=== PATIENT | male | born 1975 | race Caucasian/White ===

== ENCOUNTER 2020-04-14 23:22 | Emergency (ER) | payer OTHER, SELFPAY ==
[2020-04-14 23:27] VITALS: BP 126/71; PULSE 86; RESP 20; TEMP 36.1; O2SAT 96
--- NOTE | 2020-04-15 02:18 | ED.EYEPROB ---
HPI - Eye Problem General Chief complaint: Eye Problems Stated complaint: eye issues Time Seen by Provider: 04/15/20 00:20 Source: RN notes reviewed History of Present Illness HPI Narrative: Patient presents to emergency room from home for right eye pain. Patient states that this evening he was drilling a screw hole and to a 10 ceiling when a piece of the ceiling fell into his eye and became embedded in his right eye. He states that his try to get out the savage of metal with a a Q-tip was unsuccessful. He states he has had this happen several times over the past he denies any other trauma or injury denies any vision changes at this time denies wearing contacts or glasses Related Data Allergies Allergy/AdvReac Type Severity Reaction Status Date / Time No Known Allergies Allergy Mild Verified 04/14/20 23:30 Review of Systems Review of Systems: Narrative: Gen.: Denies fevers or chills Eye: See HPI Neuro: Denies numbness, tingling, weakness Skin: Denies rash Endo: Denies DM PMFSH Past Medical History Medical History (Updated 04/15/20 @ 02:21 by Manuel Wolfe DO) Patient denies significant medical history Social History Social History (Updated 04/15/20 @ 02:19 by Manuel Wolfe DO) Smoking status: Never smoker Exam Narrative: Exam Narrative: APPEARANCE: No acute distress, nontoxic, resting in bed Eyes: Bilateral upper and lower eyelids normal appearance PERRL, EOMI, right eye has no conjunctival erythema just to the right of the midline of the pupil is a small savage of metal seen no rust ring present, HEENT: Normocephalic, atraumatic, nares patent RESPIRATORY: No respiratory distress MUSCULOSKELETAl: Moves all extremities. NEURO: Awake and alert. Following commands, speech normal, no focal deficits SKIN:: Warm, dry. Normal Color PSYCHIATRIC: Normal affect/mood Course Course Emergency Course: Eye foreign body removal: Tetracaine was used to provide anesthesia. A wet Q-tip was then used to remove the savage of metal from the eye. Following this fluorescein stain was applied and showed only uptake where the small savage of been removed Discussed with patient results of workup and diagnosis. Discussed need for follow-up with primary care, proper use of medication, and reasons to return to the emergency department. Patient understands and agrees to current treatment plan Vital Signs Vital signs: Vital Signs Temperature 96.9 F L 04/14/20 23:27 Pulse Rate 86 04/14/20 23:27 Respiratory Rate 20 04/14/20 23:27 Blood Pressure 126/71 04/14/20 23:27 Pulse Oximetry 96 04/14/20 23:27 Temperature 96.9 F L 04/14/20 23:27 Pulse Rate 86 04/14/20 23:27 Respiratory Rate 20 04/14/20 23:27 Blood Pressure 126/71 04/14/20 23:27 Pulse Oximetry 96 04/14/20 23:27 Discharge Plan Discharge Clinical Impression: Acute foreign body of right eye Patient Disposition: Home, Self-Care Condition: Stable Instructions: Antibiotic Form, Eye Foreign Body (ED) Additional Instructions: Return for increasing pain to the eye change in vision or any other symptoms of concern Prescriptions: New erythromycin 5 mg/gram (0.5 %) ointment 0.5 inch EACH EYE QID 4 Days Qty: 1 RF: 0 Follow-up/Referrals: [facility] [Outside] - 2 Days PHYSICIAN,AUTO BODY STRAIGHTENER [Primary Care Provider] - Time of Disposition:
[2020-04-15] MEDS: ERYTHROMYCIN OPHTH OINTMENT 1 GM TUBE 1 APPLIC EACH EYE (02:43)
== END 2020-04-15 02:47 | disposition home or self-care (01) ==
PROVIDERS: Emergency Provider Emergency Medicine
DX: T15.91XA Foreign body on external eye, part unspecified, right eye, initial encounter (principal)
CPT/HCPCS: 65205; 99283; A9270

== ENCOUNTER 2024-12-30 06:47 | Emergency (ER) | payer BC, SELFPAY ==
[2024-12-30] VITALS (8 sets, daily range): BP systolic 101–113; BP diastolic 58–74; PULSE 78; RESP 20; TEMP 36.1; O2SAT 99–100
--- NOTE | ~2024-12-30 | US_ITS ---
Ultrasound venous duplex upper extremity,right arm CLINICAL HISTORY: rue swelling, r/o dvt . Comparison: None. TECHNIQUE: Grayscale, color, duplex/spectral Doppler sonography. FINDINGS: Right upper extremity internal jugular, subclavian, axillary, brachial, basilic, cephalic veins compressible (where possible) and color Doppler patent with normal phasic flow. No internal echoes. IMPRESSION: 1. No right upper extremity DVT. Reviewed, dictated and finalized at location R. [employer]
--- NOTE | 2024-12-30 07:15 | PC.NURSE ---
Assumed care of pt from Ash. Pt resting.
--- NOTE | 2024-12-30 07:15 | ED.EXTPRO ---
HPI - Extremity Problem General Chief complaint: Extremity Problem,Nontraumatic Stated complaint: bruisig to right arm-possible blood issues Time Seen by Provider: 12/30/24 06:57 History of Present Illness HPI Narrative: This is a 49-year-old male with history of polycythemia vera who presents the ED for right upper extremity swelling. 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 Over the past week he has had worsening bruising to his right distal forearm that he felt was a torn muscle so his massaging it. However, the bruising has worsened prompting him to come to the ED. Patient and were concerned for DVT due to his polycythemia vera. He is on aspirin daily for this. Denies chest pain, shortness of breath. Denies any known traumas. Related Data Allergies Allergy/AdvReac Type Severity Reaction Status Date / Time No Known Allergies Allergy Mild Verified 04/14/20 23:30 Review of Systems Review of Systems: Gen.: Denies fevers or chills Eyes: Denies eye pain or visual change ENT: Denies congestion Respiratory: Denies shortness of breath or cough CV: Denies chest pain or palpitations GI: Denies abdominal pain nausea, emesis or diarrhea denies burning, urgency, frequency or hematuria Musculoskeletal: As per HPI Neuro: Denies numbness, tingling, weakness or focal weakness Skin: Denies rash Except as documented, all other systems reviewed and negative [facility] Past Medical History Medical History Patient denies significant medical history Social History Social History Smoking status: Never smoker Exam Narrative: APPEARANCE: No acute distress, nontoxic, resting in bed EYES: EOMI HEENT: Normocephalic, atraumatic, OMM RESPIRATORY: No respiratory distress Clear to auscultation bilaterally with no rhonchi wheezing or rales. CARDIOVASCULAR: Regular rate and rhythm without murmurs rubs or gallops. ABDOMINAL: Soft, nontender, nondistended, no rebound or guarding MUSCULOSKELETAl: ecchymosis and 1+ pitting edema over the right forearm from the wrist to the elbow with mild tenderness over the distal right radius. No pain with passive or active or resisted active range of motion of the wrist or elbow or digits. NEURO: Awake and alert. Following commands, speech normal, no focal deficits SKIN:: Warm, dry. No rashes lesions or abrasions PSYCHIATRIC: Normal affect/mood, Course Vital Signs Vital signs: Vital Signs Temperature 97 F L 12/30/24 06:53 Pulse Rate 78 12/30/24 06:53 Respiratory Rate 20 12/30/24 06:53 Blood Pressure 112/72 12/30/24 06:53 Pulse Oximetry 100 12/30/24 06:53 Temperature 97 F L 12/30/24 06:53 Pulse Rate 78 12/30/24 06:53 Respiratory Rate 20 12/30/24 06:53 Blood Pressure 101/58 L 12/30/24 07:31 Pulse Oximetry 100 12/30/24 07:45 MDM - Extremity (Nontraumatic) MDM Narrative Medical decision making narrative: 49-year-old male Presenting for right arm swelling and bruising. On initial evaluation patient was in no acute distress afebrile, hemodynamic stable. Differentials include but are not limited to: Contusion, fracture sprain, strain, DVT Notable exam findings: Ecchymosis over the distal aspect of the right radius with mild tenderness to palpation on a no pain with passive, active, resisted range of motion to the elbow, wrist, digits. Ultrasound revealed no evidence of DVT. Son Ash clear what caused the patient's symptoms at this time. It seems unlikely that he has a fracture or that he tore any muscles or ligaments given the minimal amount pain and no specific injury that he can recall. Possible that he ruptured a blood vessel working the farm last week. Patient was deemed appropriate for discharge at this time. Patient was educated on Tylenol and ibuprofen use and was recommended RICE therapy. Patient was advised follow-up with their PCP in the next week for re-evaluation. Patient was agreeable to this plan. Given strict return precautions. Imaging Data Radiologist's impression: Impressions Venous Doppler Study 12/30/24 08:19 IMPRESSION: 1. No right upper extremity DVT. Discharge Plan Discharge Clinical Impression: Forearm contusion Qualifiers: Encounter type: initial encounter Laterality: right Qualified Code(s): S50.11XA - Contusion of right forearm, initial encounter Patient Disposition: Home Condition: Stable Instructions: Antibiotic Form, Contusion in Adults (ED) Additional Instructions: Ultrasound showed no evidence of a DVT. It is not entirely clear what caused your symptoms today, but I have a low suspicion for any kind of fracture. He may have pulled a muscle or tendon but this seems less likely at this time. It is more likely that you possibly ruptured vein which is what caused the bruising. Apply ice to the area 15 minutes on 15 minutes off. Keep it elevated when your sitting at home. Follow-up with your PCP in the next week for re-evaluation. Return to the ED for any new or worsening symptoms. Patient Language: Moz[place]ican Prescriptions: No Action erythromycin 5 mg/gram (0.5 %) ointment 0.5 inch EACH EYE QID 4 Days Qty: 1 0RF Follow-up/Referrals: Lina,Christian Beckham MD [Primary Care Provider, Unknown]
== END 2024-12-30 08:54 | disposition home or self-care (01) ==
PROVIDERS: Emergency Provider Student in an Organized Health Care Education/Training Program; PCP Family Medicine
DX: S50.11XA Contusion of right forearm, initial encounter (principal); D45 Polycythemia vera; Z79.82 Long term (current) use of aspirin; X58.XXXA Exposure to other specified factors, initial encounter
CPT/HCPCS: 93971; 99284